=== PATIENT | male | born 1975 | race African-American/Black ===

== ENCOUNTER 2024-04-17 06:45 | Day surgery (SDC) | payer OTHER ==
[~2024-04-17] VITALS: Ht 170.2 cm; Wt 83.0 kg
[~2024-04-17 06:45] MED LIST: D 50CAP2 PO; JARD1TAB3 PO; LIDOCAINE 2% 100MG/5ML SDV (FOR ANES.) As Ordered ONE; LORA-930 PO; METF-838 PO; OMEP-173 PO; PROBCAP14 PO; RAMI10CA64 PO; ROSU40TA81 PO; THERTAB52 PO; propofoL 200 MG/20 ML VIAL As Ordered ONE
[2024-04-17 08:02] VITALS: TEMP 98.2
[2024-04-17 08:25] VITALS: BP 125/74; O2SAT 98
== END 2024-04-17 08:31 | disposition home or self-care (01) ==
LOC: M OPP 06:45
PROVIDERS: ATTEND Surgery
DX: Z12.11 Encounter for screening for malignant neoplasm of colon (principal); D12.2 Benign neoplasm of ascending colon; K52.89 Other specified noninfective gastroenteritis and colitis; K63.89 Other specified diseases of intestine; G47.30 Sleep apnea, unspecified; Z79.84 Long term (current) use of oral hypoglycemic drugs; Z79.899 Other long term (current) drug therapy